=== PATIENT | male | born 1990 | race Caucasian/White ===

== ENCOUNTER 2020-11-23 19:34 | Emergency (ER) | payer SELFPAY ==
[~2020-11-23] VITALS: Ht 165.1 cm; Wt 91.0 kg
[2020-11-23] MEDS ORDERED: POLY15DR31 RIGHTEYE (23:19)
[2020-11-23] MEDS ORDERED: P20 MT (23:19)
[2020-11-23 23:47] VITALS: BP 115/75
== END 2020-11-23 23:48 | disposition home or self-care (01) ==
LOC: ER 19:34
DX: G51.0 Bell's palsy (principal); I49.8 Other specified cardiac arrhythmias
CPT/HCPCS: 93005; 99284